=== PATIENT | male | born 1945 | race Hispanic/Latino ===

== ENCOUNTER 2021-04-01 16:21 | Emergency (ER) | payer MEDICARE ==
[2021-04-01] MEDS ORDERED: ONDANSETRON 4 MG/2 ML INJ IV ONE (16:56)
--- NOTE | 2021-04-01 17:03 | Emergency Department Report ---
ED Abdominal Pain HPI - General Chief Complaint: Abdominal Pain Stated Complaint: SICK TO STOMACH PUI?: No Time Seen by Provider: 04/01/21 16:44 Source: patient Mode of arrival: Wheelchair Limitations: No Limitations - History of Present Illness Initial Comments: CC: "I hurt from my chest to my groin." HPI: This is a 75 yo male with hx of DM and HTN who presents with chest pain, abdominal pain, groin pain after heavy lifting. He feels sick to his stomach. He has vomiting. Pain is moderate. Dull. Difficulty to describe. No history of surgery. Patient is homeless. His 3 sons are located in [place]. He resided in [place] for 30 years. He grew up in [facility]. Complaint: abdominal pain -: Gradual, days(s) Location: diffuse Radiation: suprapubic, chest Severity: moderate Quality: dull Consistency: constant Improves With: nothing Worsens With: nothing Associated Symptoms: nausea, vomiting - Related Data Previous Rx's Medication Instructions Recorded Last Taken Type Ondansetron [Zofran Odt] 4 mg PO Q8HR PRN #10 tab.rapdis 04/01/21 Unknown Rx Allergies Allergy/AdvReac Type Severity Reaction Status Date / Time codeine AdvReac Vomiting Verified 04/01/21 16:23 ED Review of Systems ROS: Stated complaint: SICK TO STOMACH Other details as noted in HPI Comment: All other systems reviewed and negative Cardiovascular: chest pain Gastrointestinal: abdominal pain, other (Groin pain) Genitourinary: denies: urgency, dysuria Musculoskeletal: denies: back pain ED Past Medical Hx - Past Medical History Previous Medical History?: Yes Hx Hypertension: Yes Hx Diabetes: Yes - Surgical History Past Surgical History?: No - Social History Smoking Status: Never Smoker Substance Use Type: None - Medications Home Medications: Home Medications Medication Instructions Recorded Confirmed Last Taken Type Ondansetron [Zofran Odt] 4 mg PO Q8HR PRN #10 tab.rapdis 04/01/21 Unknown Rx ED Physical Exam - General Limitations: No Limitations General appearance: alert, in no apparent distress, other (Disheveled dirty clothing, covered in vomitus, pleasant cooperative, slightly tremulous) - Head Head exam: Present: atraumatic, normocephalic - Eye Eye exam: Present: normal appearance - ENT ENT exam: Present: mucous membranes moist - Neck Neck exam: Present: normal inspection, full ROM - Respiratory Respiratory exam: Present: normal lung sounds bilaterally. Absent: respiratory distress, wheezes, rales - Cardiovascular Cardiovascular Exam: Present: regular rate, normal rhythm, normal heart sounds. Absent: systolic murmur, diastolic murmur, rubs, gallop - GI/Abdominal GI/Abdominal exam: Present: soft, normal bowel sounds. Absent: distended, tenderness, guarding, rebound - Rectal Rectal exam: Present: deferred - Extremities Exam Extremities exam: Present: normal inspection - Neurological Exam Neurological exam: Present: alert, oriented X3 - Psychiatric Psychiatric exam: Present: normal affect, normal mood - Skin Skin exam: Present: warm, dry, intact, normal color. Absent: rash ED Course Vital Signs 04/01/21 04/01/21 18:03 18:05 Temperature 98.5 F Pulse Rate 93 H Respiratory 16 Rate Blood Pressure 167/97 [Left] O2 Sat by Pulse 97 97 Oximetry ED Medical Decision Making - Lab Data Result diagrams: 04/01/21 17:01 04/01/21 17:01 - EKG Data -: EKG Interpreted by Nd EKG shows normal: sinus rhythm Rate: normal - EKG Data Interpretation: nonspecific ST-T wave rajwinder 04/01/21 18:38 EKG obtained at 1816 EKG interpreted by mt Rate 86 bpm abnormal axis no ST elevation nonspecific T wave pattern normal sinus rhythm normal QTC normal AR interval - Radiology Data Radiology results: report reviewed Patient Name: RIVER RANGEL Gender: Male Date of : 1945 Referring Provider: LLOYD GOEL Organization: [facility] Accession Number: [id number] Requested Date: April 01, 2021 17:59 Report Status: Final Requested Procedure: 1 Procedure Description: CT abdomen pelvis wo con Modality: CT Findings Reporting MD: Blayne Galdamez Dictation Time: April 01, 2021 19:23 Filter Helper: Not available 3Rd Pressman Date: CT CHEST, ABDOMEN, AND PELVIS without CONTRAST INDICATION : Abdominal pain groin pain. Chest pain. Vomiting. TECHNIQUE: Helical imaging with sagittal and coronal reformated images. All CT scans at this location are performed using CT dose reduction for ALARA by means of automated exposure control. COMPARISON: None FINDINGS: CHEST: Heart size is normal with moderate coronary artery calcifications. Mild atherosclerotic disease in the thoracic aorta. The lungs are clear. No evidence for mediastinal or thoracic mass/adenopathy. The thoracic cage is intact. ABDOMEN/PELVIS: There is mild bilateral perinephric stranding. A few scattered punctate calyceal stones are identified in both kidneys. No focal renal lesion, ureteral stone or hydronephrosis. The bladder and prostate gland are unremarkable. The liver, biliary system, pancreas, spleen, adrenal glands and bowel loops are unremarkable. Normal appendix. Mild atherosclerotic disease is noted in the abdominal aorta. No aneurysm. No adenopathy, free fluid, free air or fluid collection. There is mild lumbar spondylosis. No acute osseous findings. Previous internal stabilization of the proximal left femur is noted. IMPRESSION: No acute process is identified in the chest, abdomen or pelvis. Bilateral nonobstructing nephrolithiasis. Atherosclerotic disease in the coronary arteries and aorta. Signer Name: Blayne Galdamez Jr, MD - Medical Decision Making Considerations: Viral syndrome, esophagitis, IBS, diabetic gastroparesis pancreatitis ruled out, acute coronary syndrome ruled no evidence of hernia on CT exam prescribe Zofran. Patient tolerated food and drink in emergency department. Critical care attestation.: If time is entered above; I have spent that time in minutes in the direct care of this critically ill patient, excluding procedure time. ED Disposition Clinical Impression: Viral syndrome, Esophagitis Disposition: 01 HOME / SELF CARE / HOMELESS Is pt being admited?: No Does the pt Need Aspirin: No Condition: Stable Instructions: Viral Illness, Adult Prescriptions: Ondansetron [Zofran Odt] 4 mg PO Q8HR PRN #10 tab.rapdis PRN Reason: Nausea Referrals: DENISE KANG MD [Staff Physician] - 3-5 Days
[2021-04-01 17:27] LABS: Basophils % (Auto) 0.5 % (0.0-1.8); Hematocrit 49.3 % (35.5-45.6); Hemoglobin 15.9 gm/dl (11.8-15.2); Lymphocytes # (Auto) 1.3 K/mm3 (1.2-5.4); Lymphocytes % (Auto) 17.5 % (13.4-35.0); Mean Corpuscular HGB Conc 32 % (32-34); Mean Corpuscular Volume 98 fl (84-94); Monocytes # (Auto) 0.7 K/mm3 (0.0-0.8); Platelet Count 286 K/mm3 (140-440); Red Blood Count 5.02 M/mm3 (3.65-5.03)
[2021-04-01] MEDS ORDERED: ONDANSETRON 4 MG ODT TAB PO ONE (17:59)
[2021-04-01 18:17] LABS: Albumin 3.7 g/dL (3.9-5); Bilirubin,Direct 0.2 mg/dL (0-0.2); Calcium 8.8 mg/dL (8.4-10.2)
--- NOTE | 2021-04-01 20:28 | Cat Scan Report ---
CT CHEST, ABDOMEN, AND PELVIS without CONTRAST INDICATION : Abdominal pain groin pain. Chest pain. Vomiting. TECHNIQUE: Helical imaging with sagittal and coronal reformated images. All CT scans at this [facility] are performed using CT dose reduction for ALARA by means of automated exposure control. COMPARISON: None FINDINGS: CHEST: Heart size is normal with moderate coronary artery calcifications. Mild atherosclerotic disea se in the thoracic aorta. The lungs are clear. No evidence for mediastinal or thoracic mass/adenopath y. The thoracic cage is intact. ABDOMEN/PELVIS: There is mild bilateral perinephric stranding. A few scattered punctate calyceal sto enzo are identified in both kidneys. No focal renal lesion, ureteral stone or hydronephrosis. The blad marla and prostate gland are unremarkable. The liver, biliary system, pancreas, spleen, adrenal glands and bowel loops are unremarkable. Normal appendix. Mild atherosclerotic disease is noted in the abdominal aorta. No aneurysm. No adenopathy, free fluid, free air or fluid collection. There is mild lumbar spondylosis. No acute osseous findings. Previous internal stabilization of the p roximal left femur is noted. IMPRESSION: No acute process is identified in the chest, abdomen or pelvis. Bilateral nonobstructing nephrolithiasis. Atherosclerotic disease in the coronary arteries and aorta. Signer Name: Blayne Galdamez Jr, MD Signed: 04/01/2021 8:23 PM Workstation Name: [id number]
--- NOTE | 2021-04-01 20:28 | Cat Scan Report ---
CT CHEST, ABDOMEN, AND PELVIS without CONTRAST INDICATION : Abdominal pain groin pain. Chest pain. Vomiting. TECHNIQUE: Helical imaging with sagittal and coronal reformated images. [facility] CT scans at [facility] are performed using CT dose reduction for ALARA by means of automated exposure control. COMPARISON: None FINDINGS: CHEST: Heart size is normal with moderate coronary artery calcifications. Mild atherosclerotic disea se in the thoracic aorta. The lungs are clear. No evidence for mediastinal or thoracic mass/adenopath y. The thoracic cage is intact. ABDOMEN/PELVIS: There is mild bilateral perinephric stranding. A few scattered punctate calyceal sto enzo are identified in both kidneys. No focal renal lesion, ureteral stone or hydronephrosis. The blad marla and prostate gland are unremarkable. The liver, biliary system, pancreas, spleen, adrenal glands and bowel loops are unremarkable. Normal appendix. Mild atherosclerotic disease is noted in the abdominal aorta. No aneurysm. No adenopathy, free fluid, free air or fluid collection. There is mild lumbar spondylosis. No acute osseous findings. Previous internal stabilization of the p roximal left femur is noted. IMPRESSION: No acute process is identified in the chest, abdomen or pelvis. Bilateral nonobstructing nephrolithiasis. Atherosclerotic disease in the coronary arteries and aorta. Signer Name: Blayne Galdamez Jr, MD Signed: 04/01/2021 8:23 PM Workstation Name: [id number]
[2021-04-01 21:50] VITALS: BP 149/88
--- NOTE | 2021-04-02 12:24 | Electrocardiograph Report ---
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
== END 2021-04-01 22:06 | disposition home or self-care (01) ==
LOC: ED 16:21
DX: B34.9 Viral infection, unspecified (principal); K20.90 Esophagitis, unspecified without bleeding; Z88.5 Allergy status to narcotic agent; I10 Essential (primary) hypertension; E11.8 Type 2 diabetes mellitus with unspecified complications
CPT/HCPCS: 36415; 71250; 74176; 80048; 80076; 83690; 84484; 85025; 93005; 99284; J3490; Q0162

== ENCOUNTER 2021-04-03 07:39 | Emergency (ER) | payer MEDICARE ==
--- NOTE | 2021-04-03 08:25 | Emergency Department Report ---
ED General Adult HPI - General Chief complaint: Chest Pain Stated complaint: CP X 1 WEEK Time Seen by Provider: 04/03/21 08:13 Source: patient Mode of arrival: Ambulatory Limitations: No Limitations - History of Present Illness Initial comments: Patient presents with chest pain abdominal pain for 1 week. He is recently homeless. Over the last couple of days, he reports having a precordial chest pain that is sharp and stabbing. It is across the upper chest. The pain does not radiate or migrate. He also reports having some midline abdominal pain from the top to the bottom also described as stabbing. There has been no fever or chills. He states that he has not eaten anything in 3 days. He has no place to go and does not know what to do. He came here for evaluation and treatment. He states that he is not used to being homeless or on the streets. There is no cough or congestion. He has no travel or trauma. He has had no hematemesis or coffee-ground emesis or melanotic stool. - Related Data Home Medications Medication Instructions Recorded Confirmed Last Taken No Known Home Medications [No 04/03/21 04/03/21 Unknown Reported Home Medications] Allergies Allergy/AdvReac Type Severity Reaction Status Date / Time codeine AdvReac Vomiting Verified 04/03/21 08:15 ED Review of Systems ROS: Stated complaint: CP X 1 WEEK Other details as noted in HPI Comment: All other systems reviewed and negative Constitutional: denies: fever Eyes: denies: eye pain ENT: denies: throat pain Respiratory: denies: cough Cardiovascular: as per HPI Endocrine: denies: unexplained weight loss Gastrointestinal: as per HPI Genitourinary: denies: dysuria Musculoskeletal: denies: back pain Skin: denies: rash Neurological: denies: headache Hematological/Lymphatic: denies: easy bruising ED Past Medical Hx - Past Medical History Previous Medical History?: Yes Hx Hypertension: Yes Hx Diabetes: Yes - Surgical History Past Surgical History?: No - Family History Family history: cancer, hypertension - Social History Smoking Status: Former Smoker Substance Use Type: None - Medications Home Medications: Home Medications Medication Instructions Recorded Confirmed Last Taken Type No Known Home Medications [No 04/03/21 04/03/21 Unknown History Reported Home Medications] ED Physical Exam - General Limitations: No Limitations, Other (Pulse ox noted and normal) General appearance: alert, in no apparent distress, obese (Mild), other (Disheveled) - Head Head exam: Present: atraumatic, normocephalic, normal inspection - Eye Eye exam: Present: normal appearance, EOMI. Absent: scleral icterus - ENT ENT exam: Present: mucous membranes dry, normal external ear exam - Neck Neck exam: Present: normal inspection. Absent: meningismus - Respiratory Respiratory exam: Present: normal lung sounds bilaterally. Absent: respiratory distress - Cardiovascular Cardiovascular Exam: Present: regular rate, normal rhythm - GI/Abdominal GI/Abdominal exam: Present: soft. Absent: tenderness, pulsatile mass - Extremities Exam Extremities exam: Present: normal capillary refill, other (Tremulous) - Back Exam Back exam: Absent: CVA tenderness (R), CVA tenderness (L) - Neurological Exam Neurological exam: Present: alert, oriented X3, CN II-XII intact, normal gait. Absent: motor sensory deficit - Psychiatric Psychiatric exam: Present: normal affect, normal mood - Skin Skin exam: Present: warm, dry ED Course Vital Signs 04/03/21 04/03/21 04/03/21 07:43 08:00 08:14 Temperature 97.5 F L 98 F Pulse Rate 90 76 76 Respiratory 20 18 Rate Blood Pressure 133/81 Blood Pressure 131/102 [Left] O2 Sat by Pulse 97 100 Oximetry 04/03/21 04/03/21 04/03/21 08:58 09:03 09:15 Temperature Pulse Rate 92 H 80 Respiratory 18 13 14 Rate Blood Pressure 171/92 Blood Pressure [Left] O2 Sat by Pulse 95 96 96 Oximetry 04/03/21 04/03/21 09:31 10:01 Temperature Pulse Rate 75 82 Respiratory 25 H 13 Rate Blood Pressure 150/82 137/85 Blood Pressure [Left] O2 Sat by Pulse 95 96 Oximetry - Reevaluation(s) Reevaluation #1: 04/03/21 08:24 Old records reviewed. EKG was noted. IV and labs were ordered. ED Medical Decision Making - Lab Data Result diagrams: 04/03/21 08:31 04/03/21 08:31 Rhythm strip: Normal sinus rhythm with ectopy. Monitor observe 10 seconds. - EKG Data -: EKG Interpreted by Me - EKG Data When compared to previous EKG there are: no significant change 04/03/21 08:25 EKG shows a normal sinus rhythm at 76. Intervals are normal including a QRS of 101. QT corrected is prolonged at 617. Patient has PVCs noted. There is artifact noted. There is no ST elevation to suggest STEMI. There is no ST depression suggestive of ischemia. There is no change from prior EKG. - Medical Decision Making Patient presented with chest and abdominal pain reports of nausea. He had been seen here previously. He was recently homeless. He does not have any obvious metabolic derangement that would require admission. He stated that even though he was having his chest pain, he knew his "heart was fine." There was no EKG change suggestive of STEMI. No adventitious breath sounds suggestive of pneumonia. He did not have hepatitis or pancreatitis based on laboratory studies. He did not appear to be toxic. He did have evidence of an acute kidney injury and was orally hydrated here. He was not vomiting. Patient had no peritoneal findings on exam. Critical Care Time: No Critical care attestation.: If time is entered above; I have spent that time in minutes in the direct care of this critically ill patient, excluding procedure time. ED Disposition Clinical Impression: Generalized abdominal pain, Precordial chest pain, CORNEL (acute kidney injury) Disposition: 01 HOME / SELF CARE / HOMELESS Is pt being admited?: No Condition: Stable Instructions: Acute Kidney Injury, Adult, Abdominal Pain, Adult, Nonspecific Chest Pain, Adult, Pain Without a Known Cause Additional Instructions: Drink plenty water. Continue home medication. Use Tylenol only for pain. Follow-up with your regular doctor as referred. Return for any problems or concerns. Referrals: ANDI HANCOCK MD [Primary Care Provider] - 3-5 Days JANY GONSALEZ MD [Staff Physician] - 3-5 Days
[2021-04-03 09:10] LABS: Hematocrit 44.6 % (35.5-45.6); Hemoglobin 14.8 gm/dl (11.8-15.2); Mean Corpuscular HGB Conc 33 % (32-34); Mean Corpuscular Volume 95 fl (84-94); Platelet Count 272 K/mm3 (140-440); Red Blood Count 4.68 M/mm3 (3.65-5.03); Red Cell Distribution Width 14.2 % (13.2-15.2)
[2021-04-03 09:31] LABS: Alanine Aminotransferase 15 units/L (7-56); Albumin 3.7 g/dL (3.9-5); BUN/Creatinine Ratio 25; Blood Urea Nitrogen 40 mg/dL (9-20); Calcium 8.5 mg/dL (8.4-10.2); Hemolysis Index 15
--- NOTE | 2021-04-03 10:40 | Electrocardiograph Report ---
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
[2021-04-06 13:46] VITALS: BP 133/77
== END 2021-04-06 17:21 | disposition home or self-care (01) ==
LOC: ED 07:39
DX: R07.2 Precordial pain (principal); R10.84 Generalized abdominal pain; I10 Essential (primary) hypertension; N17.9 Acute kidney failure, unspecified; Z87.891 Personal history of nicotine dependence; Z88.5 Allergy status to narcotic agent
CPT/HCPCS: 36415; 80053; 83690; 83735; 84484; 85027; 93005; 99283